=== PATIENT | female | born 1995 | race Two or more races ===

== ENCOUNTER 2016-12-23 08:59 | Day surgery (SDC) | payer MEDICAID ==
--- NOTE | 2016-12-19 08:36 | PDGENHP ---
History and Physical - Chief Complaint LEFT HIP PAIN - History of Present Illness 1. 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 Systemic Lupus Erythematosus (History of steroid treatment) HISTORY OF PRESENT ILLNESS: Claudiais a 20 y.o.~~female~who I have had the pleasure to consult on today.~I have enjoyed meeting her. She~lives in [place]. ~Claudiais on temporary disability. ~She~is ; she~has one~child. ~Claudiaenjoys walking and watching TV. Opal's bilateral~hip pain,~started on the right in December, and since July on the left, with no~recalled trauma or injury, and with no~previous complaints.~Claudiadoes not have~a known history of hip dysplasia. She has been diagnosed with lupus (SLE) and she is seeing hrbp. She was treated with high dose steroids in the recent times for the flare ups. Presentation today is of~anterior, groin bilateral~hip pain (R>L) and ~She also has some knee pain on the left. The hip does~wake her~at night and does~click and catch on her. Sitting can be uncomfortable~for her. Claudiadoes not~report suffering from lower back pain episodes. Claudiahas~participated in physical therapy and has not~tried other conservative measures including dry needling and chiropractic treatments. She~has not~ received sufficient symptomatic improvement. Claudiaunderstands that she~has a hip and pelvis problem which should be researched and wishes to get a better understanding of her~hip status, followed by an establishment of a treatment strategy, hoping sheAndradewould be able to get back to her~well being active life. History: Past medical history: ~ Lupus Relevant familial history: None which is relevant Past surgical history: I&D of her right buttock. Claudiadenies problematic issues with general anesthesia in the past. I have reviewed, verified and agree with the past medical, surgical, family and social history. Current Medications:~has a current medication list which includes the following prescription(s): azathioprine, durezol, hydroxychloroquine, and multivitamin. ALLERGIES:~has No Known Allergies. Objective: Physical Examination: Claudiais 5~feet 6~inches tall and weighs~180~Lbs. Claudiais AAO x3; she~is well- nourished, in NAD. Skin is warm and dry. ~Breathing is non-labored. ~CV with RRR by pulse. Abdomen is soft, NTND. Currently, she~walks with a abnormal antalgic~gait. Trendelenburg sign and proprioception~is not tested. Lower spine examination is negative~for sciatic or femoral nerve irritation with negative~SLR &~femoral stretch tests. Range of motion of the spine is normal~for flexion, extension, and rotations, with~some associated pain. Strength, Sensation and pulses are normal - bilaterally Ankles and knees exams are normal~and no~mal-alignment is evident. She~has~no leg length discrepancy. Thigh circumference is symmetric~with no evidence for muscle atrophy~on both~ side. Hip ROM (degrees): FL ER At 90~hip FL IR At 90~hip FL AB AD R Not Tested Not Tested Not Tested Not Tested Not Tested L 110 25 25 45 5 Specific hip and pelvis tests: Roll R +++ L Negative On a daily basis, the following percentages reflect Opal's overall total pain: Deep hip: 100% Imaging: Radiology studies which I~have personally reviewed, analyzed and measured are below: XR: AP of the hip and pelvis: Performed in a good~technique Coccyx to pubic symphysis distance 1.1~cm. 7~degrees caudal. [place]~Lines are preserved. Signs of avascular necrosis of right femoral head with collapse. Minimal~Pathological signs are seen in the Symphysis Pubis. Minimal~Pathological signs are seen at the Ischial~tuberosity. ~ Specific measurements show: Sclerosis Sup. Lat. OA Cysts Joint Space-WBZ Joint Space-Medial R Negative + Negative 2~mm 3.4~mm( measured from the collapsed surface) L Negative Negative Negative 4~mm 3.1~mm X Table lateral: Femoral head collapse with possible loose fragments on the right. 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 Physical examination, imaging, and her~story correspond with the diagnosis mentioned above. Osteonecrosis of the hip develops when the blood supply to the femoral head is disrupted. Without adequate nourishment, the bone in the head of the femur dies and gradually collapses. As a result, the articular cartilage covering the hip bones also collapses, leading to disabling arthritis. On the right,~she has advanced AVN changes and she is not a~candidate for any hip preservation procedure. She needs total hip replacement on the right. On the left, she does not have any radiographic changes suggestive of any femoral head collapse and per MRI she is~a good~candidate for core decompression. Additionally, the core decompression surgerydoesnot eliminate the possibility for future THR. If the hip preservation techniques fail to yield the expected results, THR can be done promptly. Opal~will review the info presented. Opal~is happy with this plan. I have also supplied her~with a handout~with our contact information. I wish~Opal~all the best, ~~ Terrence Jara MD History Information - Allergies/Home Medication List Allergies/Adverse Reactions: No Known Allergies Allergy (Unverified 12/02/16 12:37) Home Medications: Hydroxychloroquine Sulfate 12/02/16 [Last Taken Unknown] azaTHIOprine 12/02/16 [Last Taken Unknown] I have personally reviewed and updated: medical history - Social History Smoking Status: Never smoked
[2016-12-23] MEDS ORDERED: LIDOCAINE 1% 2 ML INJ ONE (09:13)
[2016-12-23] MEDS ORDERED: ceFAZolin 2 GM/DEXTROSE 100 ML IV ONE (09:15)
[2016-12-23] MEDS ORDERED: PREGABALIN 150 MG CAP PO ONE (09:15)
[2016-12-23] MEDS ORDERED: ACETAMINOPHEN 500 MG TAB PO ONE (09:15)
[2016-12-23 09:36] VITALS: PULSE 80
[2016-12-23] MEDS ORDERED: LIDOCAINE 1% 2 ML INJ ID PRN (09:36)
[2016-12-23] MEDS ORDERED: LR 1,000 ML IV ONE (09:36)
[2016-12-23] MEDS ORDERED: BUPIVACAINE/EPI 0.25% 30 ML SDV ONE (10:41)
[2016-12-23] MEDS ORDERED: fentaNYL 100 MCG/2 ML INJ ONE ×2 (10:52→13:11)
[2016-12-23] MEDS ORDERED: PROPOFOL 200 MG/20 ML VIAL ONE (10:55)
[2016-12-23] MEDS ORDERED: PROPOFOL/EMULSION 500 MG/50 ML BOTTLE IV ONE (10:55)
[2016-12-23] MEDS ORDERED: MIDAZOLAM 2 MG/2 ML VIAL IVP ONE (10:55)
--- NOTE | 2016-12-23 10:55 | PDANEPAE ---
ANE History of Present Illness Patient presents for Left hip decompression ANE Past Medical History - Cardiovascular History Hx Hypertension: No Hx Arrhythmias: No Hx Chest Pain: No Hx Coronary Artery / Peripheral Vascular Disease: No Hx CHF / Valvular Disease: No Hx Palpitations: No Cardiovascular History Comment: anemia 2016 - Pulmonary History Hx COPD: No Hx Asthma/Reactive Airway Disease: No Hx Recent Upper Respiratory Infection: No Hx Oxygen in Use at Home: No Hx Sleep Apnea: No Sleep Apnea Screening Result - Last Documented: Negative Pulmonary History Comment: pneumonia 2016 " drained liquid out of lung -left side" - Neurologic History Hx Cerebrovascular Accident: No Hx Seizures: No Hx Dementia: No Neurologic History Comment: menigitis 9 yrs ago - Endocrine History Hx Diabetes: No - Renal History Hx Renal Disorders: No - Liver History Hx Hepatic Disorders: No - Neurological & Psychiatric Hx Hx Neurological and Psychiatric Disorders: No - Cancer History Hx Cancer: No - Congenital Disorder History Hx Congenital Disorders: No - GI History Hx Gastrointestinal Disorders: No - Other Health History Other Health History: Lupus SLE dx Feb 2015. Bilat hips -AVN pain in groins and pain attempting to sit. - Chronic Pain History Chronic Pain: Yes (hips) - Surgical History Prior Surgeries: R hip I and D 11-28-15 ANE Review of Systems - Exercise capacity Exercise capacity: limited by disability METS (RN): 4 METS ANE Patient History - Allergies Allergies/Adverse Reactions: No Known Allergies Allergy (Unverified 12/02/16 12:37) - Home Medications Home medications: home medication list seen and reviewed Home Medications: Hydroxychloroquine Sulfate 12/02/16 [Last Taken 12/23/16 05:00] azaTHIOprine 12/02/16 [Last Taken 12/23/16 05:00] - NPO status NPO Status: no food or drink >8 hours NPO Since - Liquids (Date): 12/23/16 NPO Since - Liquids (Time): 05:00 NPO Since - Solids (Date): 12/22/16 NPO Since - Solids (Time): 22:00 - Anes Hx Anes Hx: no prior problems - Smoking Hx Smoking Status: Never smoked ANE Labs/Vital Signs - Vital Signs Blood Pressure: 124/71 Heart Rate: 80 Respiratory Rate: 15 O2 Sat (%): 100 Height: 167.64 cm Weight: 81.647 kg ANE Physical Exam - Airway Neck exam: FROM Mallampati Score: Class 2 Mouth exam: normal dental/mouth exam - Pulmonary Pulmonary: no respiratory distress - Cardiovascular Cardiovascular: regular rate and rhythym - ASA Status ASA Status: II
[2016-12-23] MEDS ORDERED: DEXAMETHASONE 4 MG/ML VIAL ONE (10:59)
[2016-12-23] MEDS ORDERED: ROCURONIUM 50 MG/5 ML VIAL ONE ×2 (10:59→11:46)
[2016-12-23] MEDS ORDERED: ONDANSETRON 4 MG/2 ML VIAL ONE (11:00)
[2016-12-23] MEDS ORDERED: LIDOCAINE 2% 5 ML SDV ONE (11:00)
[2016-12-23] MEDS ORDERED: PHENYLEPHRINE HCL 100 MCG/ML SYR ONE (11:45)
[2016-12-23] MEDS ORDERED: HYDROmorphONE/DILAUDID 2 MG/ML INJ ONE (12:09)
[2016-12-23] MEDS ORDERED: HYDROmorphONE/DILAUDID 1 MG/ML SYR IVP PRN (12:48)
[2016-12-23] MEDS ORDERED: ONDANSETRON 4 MG/2 ML VIAL IVP PRN (12:48)
[2016-12-23] MEDS ORDERED: LR 500 ML IV PRN (12:48)
[2016-12-23] MEDS ORDERED: NALOXONE HCL 0.4 MG/ML INJ IVP PRN (12:48)
[2016-12-23] MEDS ORDERED: PROMETHAZINE HCL 25 MG/ML INJ IVP PRN (12:48)
[2016-12-23] MEDS ORDERED: GLYCOPYRROLATE 0.2 MG/1 ML VIAL ONE ×3 (12:48)
[2016-12-23] MEDS ORDERED: NEOSTIGMINE METHYLSULFATE 5 MG/5 ML SYR ONE (12:49)
[2016-12-23] MEDS: fentaNYL 100 MCG/2 ML INJ IVP PRN ×2 (13:12→13:25)
--- NOTE | 2016-12-23 13:25 | POSTANESTH ---
Post Anesthetic Evaluation Cardiovascular Status: Normal, Stable Respiratory Status: Normal, Stable Level of Consciousness/Mental Status: Can Participate in Eval Pain Control: Adequate, Prn Tx Ordered Nausea/Vomiting Control: Adequate, Prn Tx Ordered Complications Possibly Related to Anesthesia: None Noted
[2016-12-23] MEDS ORDERED: HYDROmorphONE/DILAUDID 1 MG/ML SYR ONE (13:34)
[2016-12-23 13:52] VITALS: TEMP 97.9
[2016-12-23 15:07] VITALS: BP 116/62; RESP 19; O2SAT 96
[2016-12-23] MEDS ORDERED: oxyCODONE IR 5 MG TAB ONE (15:30)
[2016-12-23] MEDS ORDERED: oxyCODONE IR 5 MG TAB PO ONE (15:30)
== END 2016-12-23 17:55 | disposition home or self-care (01) ==
LOC: FSGY 08:59
PROVIDERS: ATTEND Orthopaedic Surgery Sports Medicine
PROC: 07DR3ZZ Extraction of Iliac Bone Marrow, Percutaneous Approach (ICD-10-PCS; principal; 2016-12-23 11:00)
PROC: 0QU Lower Bones, Supplement (ICD-10-PCS; principal; 2016-12-23 11:00)
DX: M87.052 Idiopathic aseptic necrosis of left femur (principal); M87.051 Idiopathic aseptic necrosis of right femur; M16.11 Unilateral primary osteoarthritis, right hip; M32.9 Systemic lupus erythematosus, unspecified; Z79.52 Long term (current) use of systemic steroids
CPT/HCPCS: J0690; J1100; J1170; J2370; J2405; J2704; J2710; J3010